=== PATIENT | female | born 1990 | race Caucasian/White ===

== ENCOUNTER 2017-02-08 19:31 | Emergency (ER) | payer BC ==
--- NOTE | 2017-02-08 20:13 | EDM.PDOC ---
ED HPI GENERAL MEDICAL PROBLEM - General Chief Complaint: General Stated Complaint: 8 WEEKS GESTATION WITH BLEEDING Time Seen by Provider: 02/08/17 19:35 Source of Information: Reports: Patient History Limitations: Reports: No Limitations - History of Present Illness INITIAL COMMENTS - FREE TEXT/NARRATIVE: Pt is at 9 wks IUP with LMP of 12/12/16. According to patient she has glenny having mild nausea or and off, but today evening she was sleeping and woke up because she felt like she wa bleeding form her vagina. No cramping in the vagina. No vomiting. No dysuria, no vaginal discharge. No intercourse in the last 24 hrs. Pt claims that she has miscarriage with her first in October 2016, was seen by Dr. Vega. Pt has been taking vitamins. No other complaints. Onset: Today Onset Date: 02/08/17 Onset Time: 18:00 Associated Symptoms: Denies: Confusion, Chest Pain, Fever/Chills, Headaches, Nausea/Vomiting, Rash, Seizure, Shortness of Breath, Syncope, Weakness ED ROS GENERAL - Review of Systems Review Of Systems: See Below Constitutional: Denies: Fever, Chills HEENT: Denies: Ear Discharge, Eye Discharge, Rhinitis, Throat Pain, Throat Swelling Respiratory: Denies: Shortness of Breath, Wheezing, Cough, Sputum Cardiovascular: Denies: Chest Pain, Lightheadedness GI/Abdominal: Reports: Nausea. Denies: Abdominal Pain, Constipation, Diarrhea, Distension, Vomiting : Denies: Discharge, Dysuria, Flank Pain, Frequency, Hematuria Musculoskeletal: Denies: Joint Pain, Joint Swelling Skin: Denies: Pruritis, Rash ED EXAM, GENERAL - Physical Exam Exam: See Below Exam Limited By: No Limitations General Appearance: Alert, WD/WN, No Apparent Distress Eye Exam: Bilateral Eye: EOMI, PERRL Ears: Normal External Exam, Normal Canal, Hearing Grossly Normal, Normal TMs Ear Exam: Bilateral Ear: Auricle Normal, Canal Normal, TM normal Nose: Normal Inspection, Normal Mucosa, No Blood Throat/Mouth: Normal Inspection, Normal Lips, Normal Teeth, Normal Gums, Normal Oropharynx, Normal Voice, No Airway Compromise Head: Atraumatic, Normocephalic Neck: Normal Inspection, Supple, Non-Tender, Full Range of Motion Respiratory/Chest: No Respiratory Distress, Lungs Clear, Normal Breath Sounds, No Accessory Muscle Use, Chest Non-Tender Cardiovascular: Normal Peripheral Pulses, Regular Rate, Rhythm, No Edema, No Gallop, No JVD, No Murmur, No Rub GI/Abdominal: Normal Bowel Sounds, Soft, Non-Tender, No Organomegaly, No Distention, No Abnormal Bruit, No Mass (Female) Exam: Normal External Exam, Enlarged Uterus, Other (Exam done with [place]: Niall Alford. there is some blood seen in the vaginal vault, but no active bleeding from the cervical os. Os appears closed.). No: Cervical Dilatation, Cervical Discharge, Cervix Motion Tenderness Course - Vital Signs Text/Narrative:: Pt's Clinical exam is normal. On per speculum exam, the cervix appear closed. There is minimal blood in the vaginal vault. Pt is not cramping at all. It does appear like threatened . I have reassured patient. Her CBC and CMp are normal. I have got her Quant HCG today is [id number]. Advised strict bed rest. Good hydration. Avoid intercourse or sexual contact for 1 wk. Will repeat Quant HCG on thursday and also get OB ultrasound scheduled for thursday. If she does have severe pelvic cramping and increased vaginal bleeding or discharge, return to emergency room. Pt does have appointment with Dr. Vega for Thursday.Advised to keep the appointment. - Orders/Labs/Meds Labs: Laboratory Tests 02/08/17 02/08/17 02/08/17 Range/Units 20:00 20:13 21:07 WBC 9.0 (4.0-11.0) K/uL RBC 4.28 (3.80-5.80) M/uL Hgb 13.6 (11.5-16.5) g/dL Hct 38.4 (37.0-47.0) % MCV 90 (76-96) fL MCH 31.8 (27.0-32.0) pg MCHC 35.4 H (31.0-35.0) g/dL RDW 12.4 (11.0-16.0) % Plt Count 173 (150-500) K/uL MPV 10.5 H (6.0-10.0) fL Neut % (Auto) 73.1 H (45.0-70.0) % Lymph % (Auto) 18.3 L (20.0-40.0) % [place] % (Auto) 7.6 (3.0-10.0) % Eos % (Auto) 0.8 L (1.0-5.0) % Baso % (Auto) 0.2 (0.0-0.5) % Neut # (Auto) 6.57 (2.00-7.50) K/uL Lymph # (Auto) 1.64 (1.50-4.00) K/uL [place] # (Auto) 0.68 (0.20-0.80) K/uL Eos # (Auto) 0.07 (0.04-0.40) K/uL Baso # (Auto) 0.02 (0.02-0.10) K/uL Sodium 137 (136-145) mmol/L Potassium 3.9 (3.5-5.1) mmol/L Chloride 104 (98-107) mmol/L Carbon Dioxide 26.2 (21.0-32.0) mmol/L Anion Gap 10.7 (5.0-15.0) mmol/L BUN 12 (8-26) mg/dL Creatinine 0.65 (0.55-1.02) mg/dL Est Cr Clr Drug Dosing TNP Estimated GFR (MDRD) > 60 (>60) MLS/MIN BUN/Creatinine Ratio 18.5 (6-25) Glucose 98 (74-100) mg/dL Calcium 9.2 (8.5-10.1) mg/dL Total Bilirubin 0.1 (0.0-1.0) mg/dL AST 13 L (15-37) U/L ALT 18 (12-78) U/L Alkaline Phosphatase 68 (46-116) U/L Total Protein 7.3 (6.4-8.2) g/dL Albumin 3.5 (3.4-5.0) g/dL Globulin 3.8 (2.2-4.2) g/dL Albumin/Globulin Ratio 0.9 (0.8-2.0) HCG, Quant [id number] H (0-6) mIU/mL Urine Color Yellow Urine Appearance Clear (CLEAR) Urine pH 5.5 (5.0-8.0) Ur Specific [place] >= 1.030 (1.003-1.030) Urine Protein Negative (NEGATIVE) mg/dL Urine Glucose (UA) Negative (NEGATIVE) mg/dL Urine Ketones Negative (NEGATIVE) mg/dL Urine Occult Blood Small H (NEGATIVE) Urine Nitrite Negative (NEGATIVE) Urine Bilirubin Negative (NEGATIVE) Urine Urobilinogen 0.2 (0.2-1.0) E.U./dL Ur Leukocyte Esterase Negative (NEGATIVE) Urine RBC 5-10 H /HPF Urine WBC Not seen /HPF Ur Squamous Epith Cells Few /HPF Departure - Departure Time of Disposition: 21:30 Disposition: Home, Self-Care 01 Condition: Fair Clinical Impression: Threatened in first trimester - Discharge Information Referrals: PCP,None [Primary Care Provider] - Forms: ED Department Discharge Additional Instructions: Pt's Clinical exam is normal. On per speculum exam, the cervix appear closed. There is minimal blood in the vaginal vault. Pt is not cramping at all. It does appear like threatened . I have reassured patient. Her CBC and CMp are normal. I have got her Quant HCG today is [id number]. Advised strict bed rest. Good hydration. Avoid intercourse or sexual contact for 1 wk. Will repeat Quant HCG on thursday and also get OB ultrasound scheduled for thursday. If she does have severe pelvic cramping and increased vaginal bleeding or discharge, return to emergency room. Pt does have appointment with Dr. Vega for Thursday.Advised to keep the appointment. - Problem List & Annotations (1) Threatened in first trimester SNOMED Code(s): 53210762 Code(s): O20.0 - THREATENED Status: Acute Current Visit: Yes - Problem List Review Problem List Initiated/Reviewed/Updated: Yes - Assessment/Plan Assessment:: 9 wks IUP with threatened Plan: Pt's Clinical exam is normal. On per speculum exam, the cervix appear closed. There is minimal blood in the vaginal vault. Pt is not cramping at all. It does appear like threatened . I have reassured patient. Her CBC and CMp are normal. I have got her Quant HCG today is [id number]. Advised strict bed rest. Good hydration. Avoid intercourse or sexual contact for 1 wk. Will repeat Quant HCG on thursday and also get OB ultrasound scheduled for thursday. If she does have severe pelvic cramping and increased vaginal bleeding or discharge, return to emergency room. Pt does have appointment with Dr. Vega for Thursday.Advised to keep the appointment.
== END 2017-02-08 21:35 | disposition home or self-care (01) ==
LOC: LB.ED 19:31
DX: O20.0 Threatened abortion (principal); Z3A.09 9 weeks gestation of pregnancy
CPT/HCPCS: 36415; 80053; 81001; 84702; 85025; 99284